=== PATIENT | female | born 1965 | race Two or more races ===

== ENCOUNTER 2017-09-16 07:50 | Emergency (ER) | payer BC ==
[2017-09-16 08:51] LABS: BILIRUBIN,URINE NEGATIVE (NEG); CLARITY,URINE CLEAR; COLOR,URINE YELLOW; GLUCOSE,URINE NEGATIVE (NEG); NITRITE,URINE NEGATIVE (NEG); PH,URINE 5.5; PROTEIN,URINE NEGATIVE (NEG-TRACE); UROBILINOGEN,URINE 0.2 mg/dL (0.2 mg/dL)
[2017-09-16 09:02] LABS: BACTERIA,URINE 0 /HPF (0-FEW); RBC,URINE 0 /HPF (0-2); SQUAMOUS EPITHELIAL CELL,UR FEW /LPF; WBC,URINE 0 /HPF (0-4)
== END 2017-09-16 09:50 | disposition home or self-care (01) ==
LOC: ER 07:50
DX: N39.0 Urinary tract infection, site not specified (principal); M54.5 Low back pain
CPT/HCPCS: 81001; 87086; 99284

== ENCOUNTER 2017-12-22 15:14 | Emergency (ER) | payer BC ==
[~2017-12-22] VITALS: Ht 157.5 cm; Wt 48.5 kg
[~2017-12-22 15:14] MED LIST: CYCL5TAB PO; SULF1TAB24 PO
[2017-12-22 15:45] LABS: BILIRUBIN,URINE NEGATIVE (NEG); CLARITY,URINE CLEAR; COLOR,URINE YELLOW; NITRITE,URINE NEGATIVE (NEG); PH,URINE 6.5; PROTEIN,URINE NEGATIVE (NEG-TRACE); UROBILINOGEN,URINE 0.2 mg/dL (0.2 mg/dL)
[2017-12-22] MEDS ORDERED: IV NORMAL SALINE 1000ML BAG 1,000 ML IV ONE (15:45)
[2017-12-22 15:55] LABS: BACTERIA,URINE MODERATE /HPF (0-FEW); SQUAMOUS EPITHELIAL CELL,UR MOD /LPF
[2017-12-22 16:11] LABS: BASO # 0.1 x10^3/uL (0.0-0.2); BASO % 1 % (0-3); EOS # 0.2 x10^3/uL (0.0-0.7); EOS % 3 % (0-3); HEMATOCRIT 44.7 % (36.0-47.0); HEMOGLOBIN 15.4 g/dL (12.0-15.5); LYMPH # 2.8 x10^3/uL (1.0-4.8); LYMPH % 38 % (24-48); MEAN CORPUSCULAR HEMOGLOBIN 32 pg (25-35); MEAN CORPUSCULAR HGB CONC 34 g/dL (31-37); MEAN CORPUSCULAR VOLUME 94 fL (79-100); MONO # 0.5 x10^3/uL (0.0-1.1); MONO % 6 % (0-9); NEUT # 3.9 x10^3uL (1.8-7.7); NEUT % 52 % (31-73); PLATELET COUNT 290 x10^3/uL (140-400); RED BLOOD COUNT 4.76 x10^6/uL (3.50-5.40); RED CELL DISTRIBUTION WIDTH 14.1 % (11.5-14.5); WHITE BLOOD COUNT 7.6 x10^3/uL (4.0-11.0)
[2017-12-22 16:23] LABS: CALCIUM 9.2 mg/dL (8.5-10.1); CREATININE 0.9 mg/dL (0.6-1.0); GFR 65.2; POTASSIUM 3.8 mmol/L (3.5-5.1)
[2017-12-22 16:29] LABS: TOTAL BILIRUBIN 0.2 mg/dL (0.2-1.0); TOTAL PROTEIN 7.9 g/dL (6.4-8.2)
[2017-12-22] MEDS ORDERED: CONTRAST GIVEN. MC PRN (17:00)
[2017-12-22] MEDS ORDERED: IOHEXOL 300 MG/ML 100ML VIAL. IV ONE (17:00)
--- NOTE | 2017-12-22 17:06 | RAD ---
CT ABD PELV W/ IV CONTRST ONLY dated 12/22/2017 4:44 PM Indication: Pain.CHRONIC LOW BACK/FLANK PAIN, NO PRIORS, [id number] 75ML pain for 2 weeks Comparison: No comparison is available. Technique: Contiguous axial imaging of the abdomen and pelvis performed after the administration of 75 cc Omnipaque 300. One or more of the following individualized dose reduction techniques were utilized for this examination: 1. Automated exposure control 2. Adjustment of the mA and/or kV according to patient size 3. Use of iterative reconstruction technique Findings: Limited images of lung bases are clear. Heart size within normal limits. No pleural or pericardial effusion. Liver, spleen, pancreas, adrenal glands, gallbladder and kidneys are unremarkable. No hydronephrosis. Unopacified GI tract normal in caliber and contour. No focal bowel wall thickening. No inflammatory stranding in the mesentery. No ascites or lymphadenopathy. The appendix is not clearly identified. No inflammatory changes in the right lower quadrant. Abdominal aorta normal in caliber. There are atherosclerotic calcifications throughout. Images the pelvis show nondistended urinary bladder. There is mild diffuse bladder wall thickening. There are a few scattered diverticula within the distal colon. No pericolic inflammatory changes. Uterus and adnexa are unremarkable. No free fluid or pelvic adenopathy. Bone windows show no acute findings. Mild lower lumbar spondylosis. IMPRESSION: 1. No acute abnormality of abdomen or pelvis. 2. Diverticulosis with no evidence of acute diverticulitis. 3. Mild wall thickening of the urinary bladder, nonspecific. Consider acute or chronic cystitis. Electronically signed by: Kiet Poole MD (12/22/2017 5:02 PM) [facility]
[2017-12-22] MEDS ORDERED: METR500T PO (17:13)
[2017-12-22] MEDS ORDERED: CIPR500T94 PO (17:13)
[2017-12-22 17:14] VITALS: BP 115/56
--- NOTE | 2017-12-22 17:17 | PHYS DOC ---
Past Medical History Past Medical History: No Pertinent History Past Surgical History: Other Alcohol Use: None Drug Use: Marijuana Adult General Chief Complaint Chief Complaint: FLANK PAIN HPI HPI Patient is a 52 year old female who presents with left flank pain and abdominal pain. She states that this is fairly chronic pain for her but it is now wrapping around into her abdomen which is new. She does have chronic back pain. She denies nausea, vomiting or diarrhea. She denies fever. Review of Systems Review of Systems Constitutional: Denies fever or chills [] Eyes: Denies change in visual acuity, redness, or eye pain [] HENT: Denies nasal congestion or sore throat [] Respiratory: Denies cough or shortness of breath [] Cardiovascular: No additional information not addressed in HPI [] GI: see history of present illness : Denies dysuria or hematuria [] Musculoskeletal: See history of present illness Integument: Denies rash or skin lesions [] Neurologic: Denies headache, focal weakness or sensory changes [] Endocrine: Denies polyuria or polydipsia [] All other systems were reviewed and found to be within normal limits, except as documented in this note. Current Medications Current Medications Current Medications Medications (Trade) Dose Ordered Sig/John Start Time Stop Time Status Last Admin Dose Admin Info (CONTRAST GIVEN -- Rx MONITORING) 1 each PRN DAILY PRN 12/22/17 17:00 12/22/17 17:58 DC Iohexol (Omnipaque 300 Mg/ml) 75 ml 1X ONCE 12/22/17 17:00 12/22/17 17:01 DC 12/22/17 17:00 75 ML Sodium Chloride 1,000 ml @ 1,000 mls/hr 1X ONCE 12/22/17 15:45 12/22/17 16:44 DC 12/22/17 15:54 1,000 MLS/HR Allergies Allergies Allergies Coded Allergies Type Severity Reaction Last Updated Verified No Known Drug Allergies 09/16/17 No Physical Exam Physical Exam Constitutional: Well developed, well nourished, no acute distress, non-toxic appearance. [] HENT: Normocephalic, atraumatic, bilateral external ears normal, oropharynx moist, no oral exudates, nose normal. [] Eyes: PERRLA, EOMI, conjunctiva normal, no discharge. [] Neck: Normal range of motion, no tenderness, supple, no stridor. [] Cardiovascular:Heart rate regular rhythm, no murmur [] Lungs & Thorax: Bilateral breath sounds clear to auscultation [] Abdomen: Bowel sounds normal, soft, tenderness to left lower quadrant with no guarding, no masses, no pulsatile masses. [] Skin: Warm, dry, no erythema, no rash. [] Back: No point spinal tenderness, tenderness to left flank. [] Extremities: No tenderness, no cyanosis, no clubbing, ROM intact, no edema. [] Neurologic: Alert and oriented X 3, normal motor function, normal sensory function, no focal deficits noted. [] Psychologic: Affect normal, judgement normal, mood normal. [] Current Patient Data Vital Signs Vital Signs Date Time Temp Pulse Resp B/P (MAP) Pulse Ox O2 Delivery O2 Flow Rate FiO2 12/22/17 17:14 59 16 115/56 (75) 98 Room Air 12/22/17 15:29 97.8 97.8 Lab Values Laboratory Tests Test 12/22/17 15:25 12/22/17 15:50 Urine Collection Type Unknown Urine Color Yellow Urine Clarity Clear Urine pH 6.5 Urine Specific [place] 1.025 Urine Protein Negative mg/dL (NEG-TRACE) Urine Glucose (UA) Negative mg/dL (NEG) Urine Ketones (Stick) Negative mg/dL (NEG) Urine Blood Trace (NEG) Urine Nitrite Negative (NEG) Urine Bilirubin Negative (NEG) Urine Urobilinogen Dipstick 0.2 mg/dL (0.2 mg/dL) Urine Leukocyte Esterase Negative (NEG) Urine RBC 1-2 /HPF (0-2) Urine WBC 1-4 /HPF (0-4) Urine Squamous Epithelial Cells Mod /LPF Urine Bacteria Moderate /HPF (0-FEW) Urine Mucus Mod /LPF White Blood Count 7.6 x10^3/uL (4.0-11.0) Red Blood Count 4.76 x10^6/uL (3.50-5.40) Hemoglobin 15.4 g/dL (12.0-15.5) Hematocrit 44.7 % (36.0-47.0) Mean Corpuscular Volume 94 fL (79-100) Mean Corpuscular Hemoglobin 32 pg (25-35) Mean Corpuscular Hemoglobin Concent 34 g/dL (31-37) Red Cell Distribution Width 14.1 % (11.5-14.5) Platelet Count 290 x10^3/uL (140-400) Neutrophils (%) (Auto) 52 % (31-73) Lymphocytes (%) (Auto) 38 % (24-48) Monocytes (%) (Auto) 6 % (0-9) Eosinophils (%) (Auto) 3 % (0-3) Basophils (%) (Auto) 1 % (0-3) Neutrophils # (Auto) 3.9 x10^3uL (1.8-7.7) Lymphocytes # (Auto) 2.8 x10^3/uL (1.0-4.8) Monocytes # (Auto) 0.5 x10^3/uL (0.0-1.1) Eosinophils # (Auto) 0.2 x10^3/uL (0.0-0.7) Basophils # (Auto) 0.1 x10^3/uL (0.0-0.2) Sodium Level 146 mmol/L (136-145) H Potassium Level 3.8 mmol/L (3.5-5.1) Chloride Level 106 mmol/L (98-107) Carbon Dioxide Level 30 mmol/L (21-32) Anion Gap 10 (6-14) Blood Urea Nitrogen 21 mg/dL (7-20) H Creatinine 0.9 mg/dL (0.6-1.0) Estimated GFR (Cockcroft-Gault) 65.2 BUN/Creatinine Ratio 23 (6-20) H Glucose Level 101 mg/dL (70-99) H Calcium Level 9.2 mg/dL (8.5-10.1) Total Bilirubin 0.2 mg/dL (0.2-1.0) Aspartate Amino Transferase (AST) 10 U/L (15-37) L Alanine Aminotransferase (ALT) 22 U/L (14-59) Alkaline Phosphatase 79 U/L (46-116) Total Protein 7.9 g/dL (6.4-8.2) Albumin 4.0 g/dL (3.4-5.0) Albumin/Globulin Ratio 1.0 (1.0-1.7) Amylase Level 69 U/L (25-115) Lipase 154 U/L (73-393) Laboratory Tests 12/22/17 15:50 Laboratory Tests 12/22/17 15:50 EKG EKG [] Radiology/Procedures Radiology/Procedures []PATIENT: DAVID STEINBERG MACCOUNT: [id number]#: [id number] : 1965 LOCATION: ER AGE: 52 SEX: F EXAM STATUS: REG ER ORD. PHYSICIAN: FANTASMA LEON APRN REASON: abdominal pain x 2 weeks PROCEDURE: CT ABD PELV W/ IV CONTRST ONLY CT ABD PELV W/ IV CONTRST ONLY dated 12/22/2017 4:44 PM Indication: Pain.CHRONIC LOW BACK/FLANK PAIN, NO PRIORS, [id number] 75ML pain for 2 weeks Comparison: No comparison is available. Technique: Contiguous axial imaging of the abdomen and pelvis performed after the administration of 75 cc Omnipaque 300. One or more of the following individualized dose reduction techniques were utilized for this examination: 1. Automated exposure control 2. Adjustment of the mA and/or kV according to patient size 3. Use of iterative reconstruction technique Findings: Limited images of lung bases are clear. Heart size within normal limits. No pleural or pericardial effusion. Liver, spleen, pancreas, adrenal glands, gallbladder and kidneys are unremarkable. No hydronephrosis. Unopacified GI tract normal in caliber and contour. No focal bowel wall thickening. No inflammatory stranding in the mesentery. No ascites or lymphadenopathy. The appendix is not clearly identified. No inflammatory changes in the right lower quadrant. Abdominal aorta normal in caliber. There are atherosclerotic calcifications throughout. Images the pelvis show nondistended urinary bladder. There is mild diffuse bladder wall thickening. There are a few scattered diverticula within the distal colon. No pericolic inflammatory changes. Uterus and adnexa are unremarkable. No free fluid or pelvic adenopathy. Bone windows show no acute findings. Mild lower lumbar spondylosis. IMPRESSION: 1. No acute abnormality of abdomen or pelvis. 2. Diverticulosis with no evidence of acute diverticulitis. 3. Mild wall thickening of the urinary bladder, nonspecific. Consider acute or chronic cystitis. Electronically signed by: Kiet Poole MD (12/22/2017 5:02 PM) [facility] DICTATED and SIGNED BY: KIET POOLE MD DATE: 12/22/17 6990 Course & Med Decision Making Course & Med Decision Making Pertinent Labs and Imaging studies reviewed. (See chart for details) []The patient was found to have diverticulosis on her CT scan she will be covered with antibiotic therapy in case this is turning into diverticulitis. She is to follow-up with a primary care provider for further management of her diverticulosis. The patient also has thyroid issues and needs to be managed for her Synthroid. We did give her a clinic list so that she can be established with a primary care provider. Dragon Disclaimer Dragon Disclaimer This electronic medical record was generated, in whole or in part, using a voice recognition dictation system. Departure Departure Impression: Primary Impression: Diverticulosis Disposition: HOME, SELF-CARE Condition: STABLE Referrals: NO PCP (PCP) Patient Instructions: Diverticulosis Additional Instructions: Take the medication as prescribed. Follow-up with your primary care provider for evaluation of your thyroid and for continued management of your diverticulosis. If worsening return to the emergency department. Scripts Metronidazole (FLAGYL) 500 Mg Tablet 1 TAB PO BID, #20 TAB Prov: FANTASMA LEON APRN 12/22/17 Ciprofloxacin Hcl (CIPRO) 500 Mg Tablet 1 TAB PO BID, #20 TAB Prov: FANTASMA LEON APRN 12/22/17 FANTASMA LEON APRN Dec 22, 2017 17:17
== END 2017-12-22 17:40 | disposition home or self-care (01) ==
LOC: ER 15:14
DX: K57.30 Diverticulosis of large intestine without perforation or abscess without bleeding (principal); G89.29 Other chronic pain; M54.5 Low back pain
CPT/HCPCS: 36415; 74177; 80053; 81001; 82150; 83690; 85025; 87086; 99285; J7030; Q9967